=== PATIENT | male | born 1980 | race African-American/Black ===

== ENCOUNTER 2018-10-10 05:12 | Emergency (ER) | payer SELFPAY ==
[~2018-10-10] VITALS: Ht 175.3 cm; Wt 81.6 kg
--- NOTE | 2018-10-10 05:42 | PHYS DOC ---
Past Medical History Past Medical History: No Pertinent History Past Surgical History: No Surgical History Alcohol Use: None Drug Use: None Adult General Chief Complaint Chief Complaint: LOWEREXTREMITY INJURY HPI HPI Patient is a 37 year AA old elevated right ankle injuries fracture one year ago presents with right ankle pain after slipping on ice. Patient with tenderness swelling of right lateral ankle chronic deformity. Patient states he no to weight bear with some pain. Currently homeless.[] Review of Systems Review of Systems Review symptoms as per history of present illness. All other review symptoms are negative. All other systems were reviewed and found to be within normal limits, except as documented in this note. Current Medications Current Medications Current Medications Medications (Trade) Dose Ordered Sig/William Start Time Stop Time Status Last Admin Dose Admin Acetaminophen/ Hydrocodone Bitart (Lortab 5/325) 1 tab 1X ONCE 10/10/18 05:45 10/10/18 05:46 Allergies Allergies Allergies Coded Allergies Type Severity Reaction Last Updated Verified No Known Drug Allergies 04/21/14 No Physical Exam Physical Exam Constitutional: Well developed, well nourished, no acute distress, non-toxic appearance. [] HENT: Normocephalic, atraumatic, bilateral external ears normal, oropharynx moist, no oral exudates, nose normal. [] Extremities: Lower extremity, right lateral ankle swelling, tenderness, chronic deformity, range of motion intact. No warmth or erythema appreciated [] Neurologic: Alert and oriented X 3, normal motor function, normal sensory function, no focal deficits noted. [] Psychologic: Affect normal, judgement normal, mood normal. [] EKG EKG [] Radiology/Procedures Radiology/Procedures [XR R ankle XR/tib fib: ] Course & Med Decision Making Course & Med Decision Making Pertinent Labs and Imaging studies reviewed. (See chart for details) [] Dragon Disclaimer Dragon Disclaimer This electronic medical record was generated, in whole or in part, using a voice recognition dictation system. Departure Departure Referrals: NO PCP (PCP) JUD MARTIN DO Oct 10, 2018 05:42
[2018-10-10] MEDS ORDERED: HYDROcodone/APAP 5/325MG 1 TAB TABLET PO ONE (05:45)
--- NOTE | 2018-10-10 07:55 | RAD ---
Examination: TIBIA FIBULA RIGHT History: leg pain Comparison/Correlation: None Findings: Frontal and lateral views of right tibia and fibula were obtained. Displaced comminuted lateral malleolar fracture is present with medial angulation at the fracture site. Medial malleolar fracture also is noted with extension into the ankle joint mortise. Mild angulation medially is noted. Mild soft tissue swelling about the malleoli noted. Knee joint spaces are adequate. Impression: Displaced comminuted medial and lateral malleolar fractures. Electronically signed by: Danny Justice MD (10/10/2018 7:50 AM) [facility]
--- NOTE | 2018-10-10 07:57 | RAD ---
Examination: ANKLE RIGHT 3V History: ankle pain Comparison/Correlation: None Findings: Total 3 images of the right ankle were obtained. Displaced comminuted lateral malleolar fracture is present with medial angulation at the fracture site. Displaced medial malleolar fracture also is noted with extension into the ankle joint mortise. Mild angulation medially is noted. Mild soft tissue swelling about the malleoli noted. Lucency of the medial talar dome which raises concern of nondisplaced fracture on the frontal and oblique views is noted. Impression: Comminuted, displaced medial and lateral malleolar fractures with intra-articular involvement. Medial talar dome nondisplaced fracture appears to be present. Electronically signed by: Danny Justice MD (10/10/2018 7:53 AM) [facility]
[2018-10-10 09:26] LABS: BASO % 0 % (0-3); EOS % 1 % (0-3); HEMATOCRIT 44.2 % (39.0-53.0); HEMOGLOBIN 14.5 g/dL (13.0-17.5); LYMPH # 2.4 x10^3/uL (1.0-4.8); LYMPH % 37 % (24-48); MEAN CORPUSCULAR HEMOGLOBIN 27 pg (25-35); MEAN CORPUSCULAR HGB CONC 33 g/dL (31-37); MEAN CORPUSCULAR VOLUME 81 fL (79-100); MONO # 0.7 x10^3/uL (0.0-1.1); MONO % 10 % (0-9); NEUT # 3.3 x10^3uL (1.8-7.7); NEUT % 52 % (31-73); PLATELET COUNT 234 x10^3/uL (140-400); RED BLOOD COUNT 5.45 x10^6/uL (4.30-5.70); RED CELL DISTRIBUTION WIDTH 14.8 % (11.5-14.5); WHITE BLOOD COUNT 6.4 x10^3/uL (4.0-11.0)
[2018-10-10 09:33] LABS: CALCIUM 9.5 mg/dL (8.5-10.1); GFR 101.2; POTASSIUM 3.7 mmol/L (3.5-5.1)
[2018-10-10 09:39] LABS: ALBUMIN 4.1 g/dL (3.4-5.0); ALBUMIN/GLOBULIN RATIO 1.2 (1.0-1.7); TOTAL BILIRUBIN 0.5 mg/dL (0.2-1.0); TOTAL PROTEIN 7.4 g/dL (6.4-8.2)
--- NOTE | 2018-10-10 09:51 | RAD ---
CT right ankle without contrast HISTORY: Right ankle fracture, increasing pain. PQRS statement: CT scans at this facility use dose reduction including either automated exposure control, iterative reconstructions, and /or weight based radiation dosing via mA and kV modification when appropriate to reduce radiation dose to as low as reasonably achievable. COMPARISON: Right ankle x-rays October 2018. TECHNIQUE: Helical multiplanar reconstructed noncontrast CT imaging of the right ankle was acquired. FINDINGS: There is a chronic nonunion sagittal oblique oriented fracture of the medial malleolus with sclerotic bony margins on average of 3 mm. Chronic transverse oriented nonunion fracture of the lateral malleolus at its junction with the distal fibula metaphysis with sclerotic margins and bulky osteophytes along the fracture margin, which is on average of 3 mm. Central and lateral talus dome osteochondral cystic lesions involving 50 percent of the surface of the talus with slight depression of the articular cortex by 2 mm. There is mild medial subluxation of the tibial plafond relative to the talus by 5 mm, and there is mild valgus deformity of the ankle present. No acute fracture. No dislocation. There is a tibiotalar probable joint effusion and probable small osseous loose bodies, as well as periarticular heterotopic ossification. There is diffuse ankle soft tissue edema. Tendons of the ankle are unremarkable. Extensive soft tissue density and stranding about the lateral ankle ligaments and deltoid ligament likely reflective of injury. IMPRESSION: No acute fracture or dislocation. 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 Talus osteochondral cystic lesions as described above. Electronically signed by: Nhan Clifford MD (10/10/2018 9:46 AM) [id number]
--- NOTE | 2018-10-10 11:25 | NUR ---
SS contacted by ER to meet with pt. SS met with Dr. Casper in ER. SS was informed that pt has chronic foot and ankle pain and needs foot and ankle specialist per Dr. Renee. Dr. Casper unsure if pt was insured. SS reviewed pt in system and pt is listed as self pay. SS met with pt. Pt reported that he has had constant issues for awhile and has been to [place] in the past. Pt reported that he is approved for SSI/Disability due to condition but has been unable to get to his appointments for finalization. Pt reported that he thought he may have [employer] insurance through his family but was recently from his family and could not contact them. Pt reported several social issues at this time. SS consulted with case management about pt maybe having insurance. Case management contacted registration and [employer] and was notified that pt would have to provide them with a policy number in order to verify if pt has insurance. Pt is unwilling to contact family at this time. SS discussed following up with [facility] with pt as they have assistance programs for self pay pt's. Pt reported that he did not want to go back to [place]. 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 Pt's RN and Dr. Casper notified.
[2018-10-10] MEDS ORDERED: ACET-704 PO (11:35)
[2018-10-10] MEDS ORDERED: cloNIDine HCL 0.1 MG TABLET PO ONE (13:00)
[2018-10-10 13:38] VITALS: BP 193/113
== END 2018-10-10 13:38 | disposition home or self-care (01) ==
LOC: ER 05:12
DX: S82.51XA Displaced fracture of medial malleolus of right tibia, initial encounter for closed fracture (principal); S82.61XA Displaced fracture of lateral malleolus of right fibula, initial encounter for closed fracture; X58.XXXA Exposure to other specified factors, initial encounter; Y93.89 Activity, other specified; Y92.89 Other specified places as the place of occurrence of the external cause; Y99.8 Other external cause status
CPT/HCPCS: 29515; 36415; 73590; 73610; 73700; 80053; 85025; 99284-25